=== PATIENT | male | born 1995 | race Caucasian/White ===

== ENCOUNTER → 2024-05-26 06:41 | Outpatient (CLI) | payer OTHER, SELFPAY ==
--- NOTE | 2024-05-26 06:44 | DI.ECHO.S_ITS ---
[place] [facility] : : [id number] : : [address] : : [id number] : : Phone: [phone] Echocardiogram Report + + :Name: HERSON SADLER Study Date: 05/26/2024 Height: 67 in : :[facility] ReadingLocation: Weight: 210 lb : : Gender: Male BSA: 2.1 m2 : :: 1995 Age: 29 yrs BP: 121/75 mmHg: :Reason For Study: CARDIAC MURMUR : :Ordering Physician: KIMBERLEY, : :REBECCA Performed By: Simran Mendez : :Referring: REBECCA CHU : + + Interpretation Summary Normal sinus rhythm. Normal LV size and wall thickness. Normal wall motion and LV systolic function. Ejection fraction is 60-65%. Normal chamber sizes. There are no significant valvular abnormalities. No source of murmur found. Procedure: A two-dimensional transthoracic echocardiogram with color flow and Doppler was performed. The study quality was technically adequate. There is no prior echocardiogram noted for this patient. The patient was in sinus rhythm with heart rates between 77-82 bpm during the exam. Left Ventricle: The left ventricle is normal in size and wall thickness. The ejection fraction is estimated to be 60-65%. Right Ventricle: The right ventricle is normal in size and function. Atria: The left atrial size is normal. Right atrium not well visualized. There is no Doppler evidence for an interatrial shunt. Mitral Valve: The mitral valve leaflets appear to open well. There is no mitral annular calcification. There is no mitral regurgitation noted. Aortic Valve: The aortic valve is trileaflet. The aortic valve opens well. There is no aortic valve stenosis. No aortic regurgitation is present. Tricuspid Valve: The tricuspid valve leaflets are thin and pliable. There is trace tricuspid regurgitation. Pulmonary artery pressures cannot be estimated because of the lack of a measurable TR jet velocity. Pulmonic Valve: The pulmonic valve leaflets are thin and pliable; valve motion is normal. There is trace pulmonic regurgitation. Great Vessels: The aortic root is normal size. The dimensions of the ascending aorta are normal. The IVC is of normal diameter and collapses greater than 50% with a sniff. This suggests a low right atrial pressure of 3 mm Hg. Pericardium/ Pleura There is no pericardial effusion. There is no pleural effusion. MMode/2D Measurements & Calculations LVIDd: 5.2 cm LVOT diam: 2.2 cm LVIDs: 3.6 cm Ao root diam: 3.4 cm FS: 30.9 % asc Aorta Diam: 3.1 cm EPSS: 0.55 cm Ao Arch Diam (Prox Trans): 2.8 cm IVSd: 0.90 cm LVPWd: 0.89 cm LV jones. diameter/BSA (cm/m^2): 2.5 LV sys. diameter/BSA (cm/m^2): 1.7 LA A2 area: 16.4 cm2 RA long axis: 4.8 cm LA A4 area: 16.5 cm2 RA area: 14.9 cm2 LA length (vol): 5.1 cm RA vol: 39.1 ml LA vol: 45.3 ml RA : 19.0 ml/m2 LA vol index: 22.0 ml/m2 IVC diam: 1.7 cm RVD1 (basal): 4.0 cm RVD2 (mid): 4.0 cm TAPSE: 2.6 cm Doppler Measurements & Calculations Ao V2 max: 115.4 cm/sec LVOT Max Govind: 110.3 cm/sec Ao V2 mean: 76.2 cm/sec LV V1 max P.9 mmHg Ao max P.3 mmHg LV V1 VTI: 20.9 cm Ao mean P.7 mmHg BRIGHT(I,D): 3.6 cm2 Ao V2 VTI: 21.3 cm BRIGHT(V,D): 3.5 cm2 sev ratio: 0.98 BRIGHT indexed to BSA (cm^2/m^2): 1.7 MV E max govind: 76.7 cm/sec PA V2 max: 101.2 cm/sec MV A max govind: 47.7 cm/sec PA V2 mean: 70.7 cm/sec MV E/A: 1.6 PA mean P.3 mmHg Med Peak E' Govind: 11.2 cm/sec PA pr(Accel): 12.2 mmHg E/E' med: 6.8 Lat Peak E' Govind: 12.3 cm/sec E/E' lat: 6.3 E/e' average: 6.5 MV dec time: 0.19 sec SV(LVOT): 76.8 ml Electronically signed by: Milvia Watson M.D. on Reading Physician:05/26/2024 11:00 AM
== END ==
PROVIDERS: Referring Provider Chiropractor; Visit Provider Chiropractor
DX: R01.1 Cardiac murmur, unspecified (principal)
CPT/HCPCS: 93306